=== PATIENT | male | born 1985 | race Caucasian/White ===

== ENCOUNTER → 2020-01-13 13:26 | Outpatient (CLI) | payer OTHER, SELFPAY ==
--- NOTE | ~2020-01-13 | XR_ITS ---
EXAMINATION: XR fl inj shoulder RT - MR/CT EXAM DATE: 01/13/2020 14:52 INDICATION: Chronic right shoulder pain. History of dislocation about 10 years ago. TECHNIQUE: A time-out was performed to verify the patient's name, date of , and procedure to b e performed. The procedure including the risks, benefits and alternatives were discussed with the pat ient. Risks discussed included bleeding and infection. The patient understood the risks and agreed to proceed. The skin overlying the right shoulder joint was prepped and draped in usual sterile fashion . Anesthetic was administered with 2 milliliters 1% lidocaine subcutaneously. A 22 G needle was adv anced under fluoroscopic guidance into the joint. A total of 12 mL of 1:200 of 529 mg/mL Multihance, 1:4 lidocaine, and 1:4 Omnipaque 240 was instilled. The needle was removed and the entry site wa s cleaned and dressed. There were no immediate complications. The DAP for this procedure was 0.02 G ycm2. The procedure was performed on 01/13/2020. FINDINGS: Real-time fluoroscopy demonstrates the needle and contrast in the right shoulder joint. IMPRESSION: Successful right shoulder joint injection. Reviewed, dictated and finalized at location B. LIZING SAW OPERATOR
--- NOTE | ~2020-01-13 | MR_ITS ---
EXAMINATION: MR shoulder RT w con DATE: 01/13/2020 16:05 INDICATION: Injury of the right glenoid labrum presenting with right shoulder pain TECHNIQUE: Magnetic resonance imaging (MRI) of the right shoulder was performed following intra-ivana cular gadolinium contrast injection and without intravenous contrast. Details of the glenohumeral fidel nt injection have been dictated separately. Sequences included axial T2-weighted FS FSE, axial T1-we ighted FS FSE, coronal oblique T1-weighted FS FSE, coronal oblique T2-weighted FSE, sagittal T2-weigh kelsie FS FSE, sagittal T1-weighted FSE, and ABER (abduction external rotation) T1-weighted FS FSE. COMPARISON: None. FINDINGS: Coracoacromial arch: The acromion undersurface is curved in morphology (type II). The coracoacromial ligament is normal. A cromioclavicular joint is normal. Rotator cuff: Mild tendinopathy of the distal supraspinatus and conjoined portion of the supraspinatus and infraspi natus tendons without discrete tear. Subscapularis and teres minor tendons are normal. Normal rotator cuff muscle bulk and signal. Biceps tendon, glenoid labrum and glenohumeral cartilage: Long head of the biceps tendon is intact. SLAP tear at the superior glenoid labrum with contrast fill ed cleft which extends peripherally into the substance of the labrum beginning posteriorly at the 11: 30 position and extending anteriorly to the 3:00 position of the anterior labrum. There is a likely p re-existing underlying labral sulcus at the superior glenoid and anterosuperior sublingual foramen. T here appears be associated partial tear of the middle glenohumeral ligament. The coracohumeral and davis perior glenohumeral ligament components of the biceps ziyad sling appear to remain intact. Glenohume ral cartilage is normal. No evident loose osteochondral bodies. Bones and other: Normal marrow signal with no edema, fracture or abnormal marrow replacing process. Small amount of fl uid at the subacromial/subdeltoid bursa consistent with mild bursitis. IMPRESSION: 1. SLAP tear of the superior to anterior glenoid labrum with likely associated partial tear of the mi ddle glenohumeral ligament. 2. Mild tendinopathy without discrete tear of the supraspinatus and conjoined portion of the supraspi natus and infraspinatus tendons. 3. Mild subacromial/subdeltoid bursitis. Reviewed, dictated and finalized at location A. LOGY COORDINATOR IMPRESSION: 1. SLAP tear of the superior to anterior glenoid labrum with likely associated partial tear of the middle glenohumeral ligament. 2. Mild tendinopathy without discrete tear of the supraspinatus and conjoined p ortion of the supraspinatus and infraspinatus tendons. 3. Mild subacromial/subdeltoid bursitis.
== END ==
PROVIDERS: Visit Provider Internal Medicine
DX: S49.91XD Unspecified injury of right shoulder and upper arm, subsequent encounter (principal); M75.21 Bicipital tendinitis, right shoulder; S43.431A Superior glenoid labrum lesion of right shoulder, initial encounter; M75.51 Bursitis of right shoulder; M77.9 Enthesopathy, unspecified
CPT/HCPCS: 23350; 73222; 77002; A9577; Q9966

== ENCOUNTER 2024-12-11 06:43 | Emergency (ER) | payer OTHER, SELFPAY ==
--- NOTE | ~2024-12-11 | CT_ITS ---
CT of the Abdomen and Pelvis: Indication: Abdominal pain Technique: 2.5 mm axial scans were obtained through the abdomen and pelvis following intravenous adm inistration of 100 cc of Omnipaque 350. Dose reduction technique was used on this scan by utilizing a utomated exposure control and iterative reconstruction technique. The dose-length product (DLP) was 3 21.77 mGy-cm. Findings: Scans through the lung bases are unremarkable. There is diffuse hepatic steatosis. The spleen, pancreas, gallbladder, adrenals and kidneys are withi n normal limits. No evidence of aortic aneurysm. No lymphadenopathy. No bowel obstruction or bowel wall thickening. There is no evidence to suggest acute appendicitis. Images through the pelvis were performed. Urinary bladder unremarkable. No pelvic mass seen. No ascit es. Impression: No acute abnormalities seen. Diffuse hepatic steatosis. Reviewed, dictated and finalized at [facility]. ENGER FLOORPERSON Impression: No acute abnormalities seen. Diffuse hepatic steatosis.
[2024-12-11 06:49] VITALS: BP 130/94; PULSE 88; RESP 20; TEMP 36.7; O2SAT 99
[2024-12-11] MEDS: SODIUM CHLORIDE 0.9% IV 1,000 ML 999 ML IV CONT (07:05)
[2024-12-11] MEDS: ONDANSETRON INJ 4 MG/2 ML VIAL IV PUSH ×2 (07:05→07:31)
[2024-12-11 07:06] LABS: Basophils Absolute Auto 0.1 K/mm3 (0.0-0.1); Basophils Percent Auto 0.4 % (0.2-1.2); Eosinophils Percent Auto 0.2 % (0-4.4); Hematocrit 49.8 % (42.0-52.0); Hemoglobin 17.7 g/dL (14.0-18.0); Immature Granulocyte Absolute 0.07 K/mm3 (0.00-0.031); Immature Granulocyte Percent A 0.4 % (0-0.5); Lymphocytes Absolute Auto 0.42 K/mm3 (0.9-3.2); Lymphocytes Percent Auto 2.4 % (18.3-44.2); Mean Corpuscular HGB Conc 35.5 g/dl (32-36); Mean Corpuscular Hemoglobin 32.4 pg (26-34); Mean Corpuscular Volume 91.2 fl (80-100); Mean Platelet Volume 10.2 fl (7.4-10.4); Monocytes Absolute Auto 1.5 K/mm3 (0.1-0.6); Monocytes Percent Auto 8.8 % (2.6-8.5); Neutrophils Absolute Auto 15.1 K/mm3 (1.3-6.7); Neutrophils Percent Auto 87.8 % (45.5-73.1); Platelet Count Result 278 k/mm3 (150-375); Red Blood Count 5.46 M/mm3 (4.6-6.20); Red Cell Distribution Width 12.4 % (11.5-14.5); White Blood Count 17.2 K/mm3 (4.5-10.0)
[2024-12-11 07:24] LABS: Alanine Aminotransferase 42 U/L (6-50); Albumin Level 5.6 g/dL (3.5-5.1); Alkaline Phosphatase 74 U/L (38-126); Anion Gap 19 mmol/L (4-12); Aspartate Amino Transferase 37 U/L (17-59); Bilirubin,Total 2.7 mg/dL (0.2-1.3); Blood Urea Nitrogen 23 mg/dL (9-20); Calcium 10.4 mg/dL (8.4-10.2); Carbon Dioxide 18 mmol/L (22-30); Chloride 105 mmol/L (98-107); Estimated CRCL calculation 75 ml/min; Estimated Glomerular Filt Rate > 60; Glucose 153 mg/dL (65-110); Lipase 82 U/L (23-300); Magnesium 1.6 mg/dL (1.6-2.3); Potassium 5.1 mmol/L (3.4-5.0); Sodium 142 mmol/L (137-145)
[2024-12-11 07:41] LABS: Influenza A QL RT-PCR Negative (Negative); Influenza B QL RT-PCR Negative (Negative); RSV RNA, RT-PCR Negative (Negative); SARS-CoV-2 RNA PCR Negative (Negative)
[2024-12-11] MEDS: SODIUM CHLORIDE 0.9% IV 1,000 ML 999 ML (07:58)
[2024-12-11 08:28] LABS: Add Urine Microscopic? NO; Appearance Urine Clear (Clear); Bilirubin Urine Negative (Negative); Blood Urine Negative (Negative); Color Urine Yellow (Yellow); Glucose Urine UA Negative (Negative); Ketones Urine Trace mg/dL (Negative); Leukocyte Esterase Ur Negative LEU/UL (Negative); Nitrate Urine Negative (Negative); Protein Urine Negative (Negative); Specific Grav Ur > 1.045 (1.001-1.035); Urobilinogen Urine 0.2 mg/dL (<2.0); pH Urine 7.5 (5.0-9.0)
[2024-12-11 08:47] VITALS: BP 126/83; PULSE 103; RESP 18; O2SAT 100
--- NOTE | 2024-12-11 09:16 | ED_ITS ---
HPI - Nausea/Vomiting/Diarrhea General Chief complaint: Nausea/Vomiting/Diarrhea Stated complaint: n/v/d Time Seen by Provider: 12/11/24 07:08 Source: patient and family Mode of arrival: ambulatory Limitations: no limitations History of Present Illness HPI Narrative: 39-year-old otherwise healthy here with the complaints of nausea, vomiting, diarrhea, abdominal pain which started yesterday. He states that he vomited several times. Denies any blood in his stool. No history of fever or chills. No other family members sick. MD elicited complaint: nausea, vomiting, diarrhea and abdominal pain Onset (ago): day(s) (1) Associated abdominal pain: Yes Location of pain: diffuse Radiation: diffuse Pain consistency: constant Severity: moderate Quality: cramping Exacerbating factors: none Relieving factors: none Associated symptoms: denies other symptoms Related Data Allergies Allergy/AdvReac Type Severity Reaction Status Date / Time No Known Allergies Allergy Unverified 12/11/24 07:00 Review of Systems 2 Review of Systems: All systems reviewed & are unremarkable except as noted in HPI and below Constitutional: Constitutional: Reports no additional constitutional complaints Eyes: Eyes: Reports no additional eye complaints ENT: Reports system reviewed and no additional complaints, except as documented Cardiovascular: Cardiovascular: Reports no additional cardiovascular complaints Respiratory: Respiratory: Reports no additional respiratory complaints Gastrointestinal: Gastrointestinal: Reports as per HPI Musculoskeletal: Musculoskeletal: Reports no additional musculoskeletal complaints Integumentary/Breasts: Skin/Breast: Reports system reviewed and no additional complaints, except as docu PMFSH Family History Family History Father Family history of hypercholesterolemia Hypertension Other Family history of cardiovascular disease Social History Social History Smoking status: Never smoker Alcohol intake: current Exam 2 Narrative: GENERAL: Well-appearing, well-nourished, and in no acute distress. HEAD: Normocephalic, atraumatic. EYES: PERRLA and EOMI. ENT: Nares clear, no rhinorrhea or epistaxis. Mucous membranes moist. NECK: Supple. CHEST: Clear to auscultation. No respiratory distress. HEART: Regular rate and rhythm. No murmur heard. Normal peripheral pulses. ABDOMEN: Soft, diffuse tenderness , nondistended, normal active bowel sounds. EXTREMITIES: Normal range of motion. No edema. SKIN: Warm, dry, no rash. NEURO: No focal deficits. Alert and oriented x3. PSYCH: Normal mood and affect. Course Course Emergency Course: Patient feeling much better after 2 L of IV fluids. Informed him and his about the lab work, CT findings. Advised him to drink more fluids as tolerated, take Zofran for nausea as needed. Vital Signs Vital signs: Vital Signs Temperature 36.7 C 12/11/24 06:49 Pulse Rate 88 12/11/24 06:49 Respiratory Rate 20 12/11/24 06:49 Blood Pressure 130/94 H 12/11/24 06:49 Pulse Oximetry 99 12/11/24 06:49 Oxygen Delivery Room Air 12/11/24 06:49 Temperature 36.7 C 12/11/24 06:49 Pulse Rate 103 H 12/11/24 08:47 Respiratory Rate 18 12/11/24 08:47 Blood Pressure 126/83 12/11/24 08:47 Pulse Oximetry 100 12/11/24 08:47 Oxygen Delivery Room Air 12/11/24 06:49 MDM - Nausea/Vomiting/Diarrhea Differential Diagnosis Differential diagnosis: Likely gastroenteritis and dehydration Medical Records Attestation: I reviewed the patient's medical records. Lab Data Attestation: I reviewed the patient's lab results. 12/11/24 06:59 12/11/24 06:59 Labs: Lab Results 12/11/24 12/11/24 12/11/24 Range/Units 06:59 06:59 06:59 WBC 17.2 H (4.5-10.0) K/mm3 RBC 5.46 (4.6-6.20) M/mm3 Hgb 17.7 (14.0-18.0) g/dL Hct 49.8 (42.0-52.0) % MCV 91.2 (80-100) fl MCH 32.4 (26-34) pg MCHC 35.5 (32-36) g/dl RDW 12.4 (11.5-14.5) % Plt Count 278 (150-375) k/mm3 MPV 10.2 (7.4-10.4) fl Immature Gran % (Auto) 0.4 (0-0.5) % Neut % (Auto) 87.8 H (45.5-73.1) % Lymph % (Auto) 2.4 L (18.3-44.2) % Wilcox % (Auto) 8.8 H (2.6-8.5) % Eos % (Auto) 0.2 (0-4.4) % Baso % (Auto) 0.4 (0.2-1.2) % Lymph # (Auto) 0.42 L (0.9-3.2) K/mm3 Wilcox # (Auto) 1.5 H (0.1-0.6) K/mm3 Eos # (Auto) 0.0 (0-0.3) K/mm3 Baso # (Auto) 0.1 (0.0-0.1) K/mm3 Abs Immat Gran (auto) 0.07 H (0.00-0.031) K/mm3 Absolute Neuts (auto) 15.1 H (1.3-6.7) K/mm3 Absolute Nucleated RBC 0.000 (0.0-0.012) K/mm3 Nucleated RBC % 0.0 (0.0-0.2) % Sodium Cancelled 142 Potassium Cancelled 5.1 H Chloride Cancelled Carbon Dioxide Anion Gap BUN Creatinine Estim Creat Clear Calc Estimated GFR Glucose Calcium Magnesium Total Bilirubin AST ALT Alkaline Phosphatase Total Protein Albumin Lipase (23-300) U/L Urine Color (Yellow) Urine Appearance (Clear) Urine pH (5.0-9.0) Ur Specific [place] (1.001-1.035) Urine Protein (Negative) mg/dL Urine Glucose (UA) (Negative) mg/dL Urine Ketones (Negative) mg/dL Ur Blood (Man) (Negative) Urine Nitrate (Negative) Urine Bilirubin (Negative) Urine Urobilinogen (<2.0) mg/dL Leukocyte Esterase Rfl (Negative) YANCI/UL Influenza A (RT-PCR) (Negative) Influenza B (RT-PCR) (Negative) RSV (RT-PCR) (Negative) SARS-CoV-2 RNA (RT-PCR) (Negative) 12/11/24 12/11/24 12/11/24 Range/Units 06:59 06:59 06:59 WBC (4.5-10.0) K/mm3 RBC (4.6-6.20) M/mm3 Hgb (14.0-18.0) g/dL Hct (42.0-52.0) % MCV (80-100) fl MCH (26-34) pg MCHC (32-36) g/dl RDW (11.5-14.5) % Plt Count (150-375) k/mm3 MPV (7.4-10.4) fl Immature Gran % (Auto) (0-0.5) % Neut % (Auto) (45.5-73.1) % Lymph % (Auto) (18.3-44.2) % Wilcox % (Auto) (2.6-8.5) % Eos % (Auto) (0-4.4) % Baso % (Auto) (0.2-1.2) % Lymph # (Auto) (0.9-3.2) K/mm3 Wilcox # (Auto) (0.1-0.6) K/mm3 Eos # (Auto) (0-0.3) K/mm3 Baso # (Auto) (0.0-0.1) K/mm3 Abs Immat Gran (auto) (0.00-0.031) K/mm3 Absolute Neuts (auto) (1.3-6.7) K/mm3 Absolute Nucleated RBC (0.0-0.012) K/mm3 Nucleated RBC % (0.0-0.2) % Sodium Potassium Chloride 105 Carbon Dioxide Cancelled 18 L Anion Gap Cancelled 19 H BUN Cancelled Creatinine Estim Creat Clear Calc Estimated GFR Glucose Calcium Magnesium Total Bilirubin AST ALT Alkaline Phosphatase Total Protein Albumin Lipase (23-300) U/L Urine Color (Yellow) Urine Appearance (Clear) Urine pH (5.0-9.0) Ur Specific [place] (1.001-1.035) Urine Protein (Negative) mg/dL Urine Glucose (UA) (Negative) mg/dL Urine Ketones (Negative) mg/dL Ur Blood (Man) (Negative) Urine Nitrate (Negative) Urine Bilirubin (Negative) Urine Urobilinogen (<2.0) mg/dL Leukocyte Esterase Rfl (Negative) YANCI/UL Influenza A (RT-PCR) (Negative) Influenza B (RT-PCR) (Negative) RSV (RT-PCR) (Negative) SARS-CoV-2 RNA (RT-PCR) (Negative) 01/24/25 01/24/25 01/24/25 Range/Units 06:59 06:59 06:59 WBC (4.5-10.0) K/mm3 RBC (4.6-6.20) M/mm3 Hgb (14.0-18.0) g/dL Hct (42.0-52.0) % MCV (80-100) fl MCH (26-34) pg MCHC (32-36) g/dl RDW (11.5-14.5) % Plt Count (150-375) k/mm3 MPV (7.4-10.4) fl Immature Gran % (Auto) (0-0.5) % Neut % (Auto) (45.5-73.1) % Lymph % (Auto) (18.3-44.2) % Wilcox % (Auto) (2.6-8.5) % Eos % (Auto) (0-4.4) % Baso % (Auto) (0.2-1.2) % Lymph # (Auto) (0.9-3.2) K/mm3 Wilcox # (Auto) (0.1-0.6) K/mm3 Eos # (Auto) (0-0.3) K/mm3 Baso # (Auto) (0.0-0.1) K/mm3 Abs Immat Gran (auto) (0.00-0.031) K/mm3 Absolute Neuts (auto) (1.3-6.7) K/mm3 Absolute Nucleated RBC (0.0-0.012) K/mm3 Nucleated RBC % (0.0-0.2) % Sodium Potassium Chloride Carbon Dioxide Anion Gap BUN 23 H Creatinine Cancelled 1.20 Estim Creat Clear Calc Cancelled 75 Estimated GFR Cancelled Glucose Calcium Magnesium Total Bilirubin AST ALT Alkaline Phosphatase Total Protein Albumin Lipase (23-300) U/L Urine Color (Yellow) Urine Appearance (Clear) Urine pH (5.0-9.0) Ur Specific [place] (1.001-1.035) Urine Protein (Negative) mg/dL Urine Glucose (UA) (Negative) mg/dL Urine Ketones (Negative) mg/dL Ur Blood (Man) (Negative) Urine Nitrate (Negative) Urine Bilirubin (Negative) Urine Urobilinogen (<2.0) mg/dL Leukocyte Esterase Rfl (Negative) YANCI/UL Influenza A (RT-PCR) (Negative) Influenza B (RT-PCR) (Negative) RSV (RT-PCR) (Negative) SARS-CoV-2 RNA (RT-PCR) (Negative) 12/11/24 12/11/24 12/11/24 Range/Units 06:59 06:59 06:59 WBC (4.5-10.0) K/mm3 RBC (4.6-6.20) M/mm3 Hgb (14.0-18.0) g/dL Hct (42.0-52.0) % MCV (80-100) fl MCH (26-34) pg MCHC (32-36) g/dl RDW (11.5-14.5) % Plt Count (150-375) k/mm3 MPV (7.4-10.4) fl Immature Gran % (Auto) (0-0.5) % Neut % (Auto) (45.5-73.1) % Lymph % (Auto) (18.3-44.2) % Wilcox % (Auto) (2.6-8.5) % Eos % (Auto) (0-4.4) % Baso % (Auto) (0.2-1.2) % Lymph # (Auto) (0.9-3.2) K/mm3 Wilcox # (Auto) (0.1-0.6) K/mm3 Eos # (Auto) (0-0.3) K/mm3 Baso # (Auto) (0.0-0.1) K/mm3 Abs Immat Gran (auto) (0.00-0.031) K/mm3 Absolute Neuts (auto) (1.3-6.7) K/mm3 Absolute Nucleated RBC (0.0-0.012) K/mm3 Nucleated RBC % (0.0-0.2) % Sodium Potassium Chloride Carbon Dioxide Anion Gap BUN Creatinine Estim Creat Clear Calc Estimated GFR > 60 Glucose Cancelled 153 H Calcium Cancelled 10.4 H Magnesium Cancelled Total Bilirubin AST ALT Alkaline Phosphatase Total Protein Albumin Lipase (23-300) U/L Urine Color (Yellow) Urine Appearance (Clear) Urine pH (5.0-9.0) Ur Specific [place] (1.001-1.035) Urine Protein (Negative) mg/dL Urine Glucose (UA) (Negative) mg/dL Urine Ketones (Negative) mg/dL Ur Blood (Man) (Negative) Urine Nitrate (Negative) Urine Bilirubin (Negative) Urine Urobilinogen (<2.0) mg/dL Leukocyte Esterase Rfl (Negative) YANCI/UL Influenza A (RT-PCR) (Negative) Influenza B (RT-PCR) (Negative) RSV (RT-PCR) (Negative) SARS-CoV-2 RNA (RT-PCR) (Negative) 12/11/24 12/11/24 12/11/24 Range/Units 06:59 06:59 06:59 WBC (4.5-10.0) K/mm3 RBC (4.6-6.20) M/mm3 Hgb (14.0-18.0) g/dL Hct (42.0-52.0) % MCV (80-100) fl MCH (26-34) pg MCHC (32-36) g/dl RDW (11.5-14.5) % Plt Count (150-375) k/mm3 MPV (7.4-10.4) fl Immature Gran % (Auto) (0-0.5) % Neut % (Auto) (45.5-73.1) % Lymph % (Auto) (18.3-44.2) % Wilcox % (Auto) (2.6-8.5) % Eos % (Auto) (0-4.4) % Baso % (Auto) (0.2-1.2) % Lymph # (Auto) (0.9-3.2) K/mm3 Wilcox # (Auto) (0.1-0.6) K/mm3 Eos # (Auto) (0-0.3) K/mm3 Baso # (Auto) (0.0-0.1) K/mm3 Abs Immat Gran (auto) (0.00-0.031) K/mm3 Absolute Neuts (auto) (1.3-6.7) K/mm3 Absolute Nucleated RBC (0.0-0.012) K/mm3 Nucleated RBC % (0.0-0.2) % Sodium Potassium Chloride Carbon Dioxide Anion Gap BUN Creatinine Estim Creat Clear Calc Estimated GFR Glucose Calcium Magnesium 1.6 Total Bilirubin Cancelled 2.7 H AST Cancelled 37 ALT Cancelled Alkaline Phosphatase Total Protein Albumin Lipase (23-300) U/L Urine Color (Yellow) Urine Appearance (Clear) Urine pH (5.0-9.0) Ur Specific [place] (1.001-1.035) Urine Protein (Negative) mg/dL Urine Glucose (UA) (Negative) mg/dL Urine Ketones (Negative) mg/dL Ur Blood (Man) (Negative) Urine Nitrate (Negative) Urine Bilirubin (Negative) Urine Urobilinogen (<2.0) mg/dL Leukocyte Esterase Rfl (Negative) YANCI/UL Influenza A (RT-PCR) (Negative) Influenza B (RT-PCR) (Negative) RSV (RT-PCR) (Negative) SARS-CoV-2 RNA (RT-PCR) (Negative) 12/11/24 12/11/24 12/11/24 Range/Units 06:59 06:59 06:59 WBC (4.5-10.0) K/mm3 RBC (4.6-6.20) M/mm3 Hgb (14.0-18.0) g/dL Hct (42.0-52.0) % MCV (80-100) fl MCH (26-34) pg MCHC (32-36) g/dl RDW (11.5-14.5) % Plt Count (150-375) k/mm3 MPV (7.4-10.4) fl Immature Gran % (Auto) (0-0.5) % Neut % (Auto) (45.5-73.1) % Lymph % (Auto) (18.3-44.2) % Wilcox % (Auto) (2.6-8.5) % Eos % (Auto) (0-4.4) % Baso % (Auto) (0.2-1.2) % Lymph # (Auto) (0.9-3.2) K/mm3 Wilcox # (Auto) (0.1-0.6) K/mm3 Eos # (Auto) (0-0.3) K/mm3 Baso # (Auto) (0.0-0.1) K/mm3 Abs Immat Gran (auto) (0.00-0.031) K/mm3 Absolute Neuts (auto) (1.3-6.7) K/mm3 Absolute Nucleated RBC (0.0-0.012) K/mm3 Nucleated RBC % (0.0-0.2) % Sodium Potassium Chloride Carbon Dioxide Anion Gap BUN Creatinine Estim Creat Clear Calc Estimated GFR Glucose Calcium Magnesium Total Bilirubin AST ALT 42 Alkaline Phosphatase Cancelled 74 Total Protein Cancelled 9.0 H Albumin Cancelled Lipase (23-300) U/L Urine Color (Yellow) Urine Appearance (Clear) Urine pH (5.0-9.0) Ur Specific [place] (1.001-1.035) Urine Protein (Negative) mg/dL Urine Glucose (UA) (Negative) mg/dL Urine Ketones (Negative) mg/dL Ur Blood (Man) (Negative) Urine Nitrate (Negative) Urine Bilirubin (Negative) Urine Urobilinogen (<2.0) mg/dL Leukocyte Esterase Rfl (Negative) YANCI/UL Influenza A (RT-PCR) (Negative) Influenza B (RT-PCR) (Negative) RSV (RT-PCR) (Negative) SARS-CoV-2 RNA (RT-PCR) (Negative) 12/11/24 12/11/24 Range/Units 06:59 08:21 WBC (4.5-10.0) K/mm3 RBC (4.6-6.20) M/mm3 Hgb (14.0-18.0) g/dL Hct (42.0-52.0) % MCV (80-100) fl MCH (26-34) pg MCHC (32-36) g/dl RDW (11.5-14.5) % Plt Count (150-375) k/mm3 MPV (7.4-10.4) fl Immature Gran % (Auto) (0-0.5) % Neut % (Auto) (45.5-73.1) % Lymph % (Auto) (18.3-44.2) % Wilcox % (Auto) (2.6-8.5) % Eos % (Auto) (0-4.4) % Baso % (Auto) (0.2-1.2) % Lymph # (Auto) (0.9-3.2) K/mm3 Wilcox # (Auto) (0.1-0.6) K/mm3 Eos # (Auto) (0-0.3) K/mm3 Baso # (Auto) (0.0-0.1) K/mm3 Abs Immat Gran (auto) (0.00-0.031) K/mm3 Absolute Neuts (auto) (1.3-6.7) K/mm3 Absolute Nucleated RBC (0.0-0.012) K/mm3 Nucleated RBC % (0.0-0.2) % Sodium Potassium Chloride Carbon Dioxide Anion Gap BUN Creatinine Estim Creat Clear Calc Estimated GFR Glucose Calcium Magnesium Total Bilirubin AST ALT Alkaline Phosphatase Total Protein Albumin 5.6 H Lipase 82 (23-300) U/L Urine Color Yellow (Yellow) Urine Appearance Clear (Clear) Urine pH 7.5 (5.0-9.0) Ur Specific [place] > 1.045 H (1.001-1.035) Urine Protein Negative (Negative) mg/dL Urine Glucose (UA) Negative (Negative) mg/dL Urine Ketones Trace H (Negative) mg/dL Ur Blood (Man) Negative (Negative) Urine Nitrate Negative (Negative) Urine Bilirubin Negative (Negative) Urine Urobilinogen 0.2 (<2.0) mg/dL Leukocyte Esterase Rfl Negative (Negative) YANCI/UL Influenza A (RT-PCR) Negative (Negative) Influenza B (RT-PCR) Negative (Negative) RSV (RT-PCR) Negative (Negative) SARS-CoV-2 RNA (RT-PCR) Negative (Negative) Imaging Data Radiologist's impression: ITS Impressions Abdomen/Pelvis CT 12/11/24 08:14 Impression: No acute abnormalities seen. Diffuse hepatic steatosis. Discharge Plan Discharge Clinical Impression: Gastroenteritis Patient Disposition: Home, Self-Care Condition: Stable Instructions: Gastroenteritis (ED) Patient Language: Swedish Prescriptions: New ondansetron 4 mg tablet,disintegrating 4 mg PO Q6-8H PRN (Reason: nausea and vomiting) Qty: 14 0RF dicyclomine 20 mg tablet 20 mg PO QID PRN (Reason: abdominal pain) Qty: 30 0RF Follow-up/Referrals: Guilherme Lozano MD [Physician] - UNKNOWN,DOCTOR [Primary Care Provider] - Time of Disposition: 09:23
[2024-12-11 09:34] VITALS: BP 120/83; PULSE 111; RESP 23; TEMP 36.9; O2SAT 100
== END 2024-12-11 09:35 | disposition home or self-care (01) ==
PROVIDERS: Emergency Medicine; Emergency Provider Family Medicine
DX: K52.9 Noninfective gastroenteritis and colitis, unspecified (principal); Z20.822 Contact with and (suspected) exposure to COVID-19; K76.0 Fatty (change of) liver, not elsewhere classified
CPT/HCPCS: 36415; 74177; 80053; 81003; 83690; 83735; 85025; 87637; 96361; 96374; 96376; 99284; J2405; J7030; Q9967

== ENCOUNTER 2025-01-11 10:10 | Outpatient (CLI) | payer OTHER, SELFPAY ==
--- NOTE | ~2025-01-11 | CT_ITS ---
EXAMINATION: CT sinus wo con DATE: 01/11/2025 10:24 INDICATION: Chronic sinusitis. TECHNIQUE: Computed tomography (CT) of the paranasal sinuses was performed without intravenous contra st. Iterative reconstruction technique was employed. The dose-length product was 289.74 mGy-cm. COMPARISON: None FINDINGS: The frontal sinuses clear. There is mild mucosal thickening in the left anterior ethmoid si nuses. The sphenoid sinuses are clear. There is mild mucosal thickening in the maxillary sinuses. The nasal septum is at midline. There is a Sari cell on the left. The ostiomeatal units are patent. Ri ght middle turbinate is partially paradoxical. IMPRESSION: 1. Mild mucosal thickening in the paranasal sinuses. Reviewed, dictated and finalized at location A. PLE WORKER
== END 2025-01-11 10:11 | disposition home or self-care (01) ==
PROVIDERS: PCP Physician Assistant; Visit Provider Physician Assistant
DX: J34.89 Other specified disorders of nose and nasal sinuses (principal); J32.9 Chronic sinusitis, unspecified
CPT/HCPCS: 70486